=== PATIENT | female | born 1940 | race Caucasian/White ===

== ENCOUNTER 2021-01-07 04:52 | Emergency (ER) | payer OTHER ==
[~2021-01-07 04:52] MED LIST: AFRIN15 M1; ANTIVERT12.5 MG PO; ASPIRIN CHEWABL81 MG PO; AZITHROMYCIN250 MG PO; BACITRACIN15 GM TOP; CEFTIN250 MG PO; CLARITIN10 MG PO; COUMADIN1 MG PO; COUMADIN2 MG PO; FLEXERIL5 MG PO; FLONASE ALLER15.8 ML; K-DUR20 MEQ PO; LACTINEX1 EACH PO; LIPITOR20 MG PO; LOPRESSOR25 MG PO; MAG-OXIDE 400M400 MG PO; MECLIZINE 25MG25 MG PO; MEGACE ORA6 TSP/1 OZ PO; NORCO 5-325 TA1 EACH PO; PAXIL10 MG PO; POTASSIUM CHLO20 ME1 PO; POTASSIUM CHLO20 ME2 PO; PREVAGEN PO; PRILOSEC40 MG PO; SYNTHROID25 MCG PO; ULTRAM50 MG PO; XARELTO1 EACH PO; XARELTO20 MG PO; XOPENEX (11.25 MG/3 NEB; ZANTAC150 MG PO
[2021-01-07] MEDS ORDERED: BACLOFEN 10MG T10 MG PO (07:56)
== END 2021-01-07 08:05 | disposition home or self-care (01) ==
LOC: FER 04:52
DX: M62.838 Other muscle spasm (principal); M47.812 Spondylosis without myelopathy or radiculopathy, cervical region; I25.2 Old myocardial infarction; Z86.718 Personal history of other venous thrombosis and embolism; Z79.01 Long term (current) use of anticoagulants; Z88.6 Allergy status to analgesic agent; Z87.19 Personal history of other diseases of the digestive system
CPT/HCPCS: 72050; J1030

== ENCOUNTER 2021-05-28 22:28 | Emergency (ER) | payer OTHER ==
[~2021-05-28 22:28] MED LIST changes: +BACLOFEN 10MG T10 MG PO
[2021-05-28 23:23] LABS: BASOPHIL 0.9 % (0-2); EOSINOPHIL 5.6 % (0-7); HCT 40.2 % (37.0-47.0); HGB 12.9 g/dl (12.5-16.0); LYMPHOCYTE 26.2 % (15-48); MCH 31.5 pg (25.0-31.0); MCHC 32.1 g/dL (32.0-36.0); MPV 10.4 fL (6.0-9.5); NEUTROPHIL 57.9 % (41-80); NRBC 0; PLT 216 K/uL (150-400); RDW 12.6 % (11.5-14.0); WBC 5.4 K/uL (4.0-10.5)
[2021-05-28 23:48] LABS: ALBUMIN 3.4 g/dL (3.4-5.0); BILIRUBIN - TOTAL 0.3 mg/dL (0.2-1.0); BUN/CREAT RATIO (CALC) 10.7 RATIO; CREATININE 0.75 mg/dL (0.51-0.95); GLOBULIN (CALCULATION) 3.2 g/dL; POTASSIUM 4.2 mmol/L (3.5-5.1); TOTAL PROTEIN 6.6 g/dL (6.4-8.2)
[2021-05-28 23:50] LABS: LACTIC ACID 0.8 mmol/L (0.4-1.9)
[2021-05-29 00:39] LABS: BILIRUBIN NEGATIVE (NEGATIVE); BLOOD NEGATIVE Ery/uL (NEGATIVE); CLARITY CLEAR (CLEAR); COLOR YELLOW (YELLOW); GLUCOSE (U) NORMAL (NORMAL); LEUKOCYTES 1+ Leu/uL (NEGATIVE); NITRITE NEGATIVE (NEGATIVE); PROTEIN NEGATIVE (NEGATIVE); UROBILINOGEN 0.2 mg/dL (0.2-1.0)
[2021-05-29 00:49] LABS: BACTERIA TRACE; TRANSITIONAL EPITHELIAL CELLS RARE
[2021-05-29] MEDS ORDERED: PREDNISONE 20MG20 MG PO (00:52)
== END 2021-05-29 01:20 | disposition home or self-care (01) ==
LOC: FER 22:28
PROVIDERS: Emergency Medicine
DX: J44.1 Chronic obstructive pulmonary disease with (acute) exacerbation (principal); Z20.822 Contact with and (suspected) exposure to COVID-19; Z86.718 Personal history of other venous thrombosis and embolism; Z79.899 Other long term (current) drug therapy
CPT/HCPCS: 36415; 71045; 80053; 81001; 83605; 84145; 84484; 85025; 87040; 87076; 87088; 87186; 93005; 94640; 94664; J2930; U0002

== ENCOUNTER 2021-06-13 04:42 | Emergency (ER) | payer OTHER ==
[~2021-06-13 04:42] MED LIST changes: +PREDNISONE 20MG20 MG PO
[2021-06-13] MEDS ORDERED: NORCO 5-325 TA1 EACH PO (06:38)
[2021-06-13] MEDS ORDERED: BACLOFEN5 MG PO (06:38)
[2021-06-13] MEDS ORDERED: LIDODERM 5%1 EACH TOP (06:38)
== END 2021-06-13 07:44 | disposition home or self-care (01) ==
LOC: FER 04:42
DX: M50.30 Other cervical disc degeneration, unspecified cervical region (principal); Z98.890 Other specified postprocedural states; Z79.01 Long term (current) use of anticoagulants
CPT/HCPCS: 72125

== ENCOUNTER 2021-08-30 12:35 | Emergency (ER) | payer OTHER ==
[~2021-08-30 12:35] MED LIST changes: +BACLOFEN5 MG PO; +LIDODERM 5%1 EACH TOP
[2021-08-30 16:20] LABS: BASOPHIL 0.8 % (0-2); EOSINOPHIL 2.5 % (0-7); HCT 38.5 % (37.0-47.0); HGB 12.4 g/dl (12.5-16.0); LYMPHOCYTE 12.6 % (15-48); MCH 31.3 pg (25.0-31.0); MCHC 32.2 g/dL (32.0-36.0); MCV 97.2 fL (78.0-100.0); MONOCYTE 6.2 % (0-12); MPV 9.6 fL (6.0-9.5); NEUTROPHIL 77.4 % (41-80); NRBC 0; PLT 242 K/uL (150-400); RBC 3.96 M/uL (4.20-5.40); RDW 13.4 % (11.5-14.0); WBC 9.5 K/uL (4.0-10.5)
[2021-08-30 16:40] LABS: ALBUMIN 3.4 g/dL (3.4-5.0); BILIRUBIN - TOTAL 0.5 mg/dL (0.2-1.0); BUN/CREAT RATIO (CALC) 16.2 RATIO; CREATININE 0.74 mg/dL (0.51-0.95); GLOBULIN (CALCULATION) 3.2 g/dL; POTASSIUM 3.2 mmol/L (3.5-5.1); TOTAL PROTEIN 6.6 g/dL (6.4-8.2)
[2021-08-30 16:57] LABS: CORONAVIRUS 2019 SARS-COV-2 NEGATIVE (NEGATIVE); INFLUENZA A NAA NEGATIVE (NEGATIVE)
[2021-08-30] MEDS ORDERED: XOPENEX (11.25 MG/3 NEB (20:20)
[2021-08-30] MEDS ORDERED: ROBITUSSIN W/COD5 ML PO (20:20)
[2021-08-30] MEDS ORDERED: CEFDINIR300 MG PO (20:20)
== END 2021-08-30 20:54 | disposition home or self-care (01) ==
LOC: FER 12:35
PROVIDERS: Emergency Medicine Emergency Medical Services
DX: J18.9 Pneumonia, unspecified organism (principal); E87.6 Hypokalemia; S30.0XXA Contusion of lower back and pelvis, initial encounter; R00.0 Tachycardia, unspecified; Z88.6 Allergy status to analgesic agent; Z20.822 Contact with and (suspected) exposure to COVID-19; W19.XXXA Unspecified fall, initial encounter
CPT/HCPCS: 36415; 36600; 71045; 71275; 72110; 72220; 80053; 82803; 83605; 83735; 84145; 84484; 85025; 85379; 87040; 93005; 94640; 94664; J0696; J2930; J3475; J3480; Q9967; U0002

== ENCOUNTER 2022-06-09 15:07 | Emergency (ER) | payer OTHER ==
[~2022-06-09 15:07] MED LIST changes: +CEFDINIR300 MG PO; +ROBITUSSIN W/COD5 ML PO
[2022-06-09] MEDS ORDERED: CEPHALEXIN500 MG PO (19:09)
== END 2022-06-09 19:25 | disposition home or self-care (01) ==
LOC: FER 15:07
DX: S01.21XA Laceration without foreign body of nose, initial encounter (principal); S51.812A Laceration without foreign body of left forearm, initial encounter; S00.83XA Contusion of other part of head, initial encounter; Z88.6 Allergy status to analgesic agent; W01.0XXA Fall on same level from slipping, tripping and stumbling without subsequent striking against object, initial encounter; Y92.009 Unspecified place in unspecified non-institutional (private) residence as the place of occurrence of the external cause
CPT/HCPCS: 70450; 70486; 72125